=== PATIENT | male | born 1985 | race Caucasian/White ===

== ENCOUNTER 2020-01-11 04:08 | Emergency (ER) | payer MEDICAID, OTHER ==
[~2020-01-11] VITALS: Ht 167.6 cm; Wt 106.0 kg
[2020-01-11] MEDS ORDERED: IBUPROFEN 600MG TABLET PO ONE (06:00)
[2020-01-11 06:33] VITALS: BP 145/90
== END 2020-01-11 06:36 | disposition home or self-care (01) ==
LOC: ER 04:08
DX: M25.562 Pain in left knee (principal)
CPT/HCPCS: 73560; 99283; L1830

== ENCOUNTER 2020-08-15 01:27 | Emergency (ER) | payer MEDICAID ==
[~2020-08-15] VITALS: Ht 167.6 cm; Wt 114.0 kg
[2020-08-15] MEDS ORDERED: SODIUM CHLORIDE 0.9% 1,000 ML IV ONE (01:45)
[2020-08-15 02:06] LABS: BASOPHILS % 0.7 % (0.0-2.0); EOSINOPHILS % 1.2 % (0.0-5.0); HEMATOCRIT. 45.9 % (42.0-52.0); LYMPHOCYTES % 47.4 % (20.0-50.0); MEAN CORPUSCULAR HEMOGLOBIN 30.2 pg (28.0-32.0); MEAN CORPUSCULAR VOLUME 86.4 fL (80.0-94.0); MEAN PLATELET VOLUME 8.4 fl (7.4-10.4); MONOCYTES % 8.8 % (2.0-8.0); NEUTROPHILS % 41.9 % (40.0-76.0); PLATELET 253 x1000/uL (130-400); RED BLOOD CELL COUNT 5.31 mill/uL (4.7-6.1); RED CELL DISTRIBUTION WIDTH 13.3 % (11.6-14.6)
[2020-08-15 02:12] LABS: CHLORIDE 106 mEq/L (98-107)
[2020-08-15 02:16] LABS: ETHANOL BLOOD 263 mg/dL
[2020-08-15 02:20] LABS: CLARITY URINE CLEAR (CLEAR); COLOR URINE YELLOW (YELLOW); KETONES URINE NEGATIVE (NEGATIVE); LEUKOCYTE ESTERASE URINE NEGATIVE (NEGATIVE); NITRITE URINE NEGATIVE (NEGATIVE); OCCULT BLOOD URINE 1+ (NEGATIVE); PH URINE 5.5 (4.5-8.0); PROTEIN URINE NEGATIVE (NEGATIVE); SPECIFIC GRAVITY URINE 1.005 (1.005-1.030); UROBILINOGEN URINE 0.2 E.U./dL (0.2-1.0)
[2020-08-15 02:30] LABS: *AMPHETAMINES SCREEN URINE NEGATIVE (NEGATIVE); *BARBITURATES SCREEN URINE NEGATIVE (NEGATIVE); *BENZODIAZEPINES SCREEN URINE NEGATIVE (NEGATIVE); *COCAINE SCREEN URINE NEGATIVE (NEGATIVE); METHADONE URINE SCREEN NEGATIVE (NEGATIVE); OPIATES URINE SCREEN NEGATIVE (NEGATIVE); PHENCYCLIDINE URINE SCREEN NEGATIVE (NEGATIVE)
[2020-08-15 02:31] LABS: CANNABINOID URINE SCREEN NEGATIVE (NEGATIVE)
[2020-08-15 06:48] VITALS: BP 147/87
== END 2020-08-15 08:05 | disposition left against medical advice (07) ==
LOC: ER 01:27
DX: F10.129 Alcohol abuse with intoxication, unspecified (principal); Y90.8 Blood alcohol level of 240 mg/100 ml or more; R45.850 Homicidal ideations
CPT/HCPCS: 36415; 80053; 80305; 80320; 81003; 85025; 99283; J7030; G0480